=== PATIENT | female | born 1975 | race Caucasian/White ===

== ENCOUNTER 2018-05-27 16:15 | Emergency (ER) | payer BC ==
[~2018-05-27] VITALS: Ht 170.2 cm; Wt 64.1 kg
[2018-05-27 16:21] VITALS: Ht 170.2 cm; Wt 64.1 kg
[2018-05-27] MEDS ORDERED: BACTRIM DS TABL1 TAB PO (16:25)
[2018-05-27] MEDS ORDERED: CLONAZEPAM1 MG/TAB PO (16:26)
[2018-05-27] MEDS ORDERED: MUSCLE RELAXANT (16:26)
[2018-05-27 16:52] LABS: BASOPHILS 0.4 % (0-2); EOSINOPHILS 1.3 % (0-7); HEMATOCRIT 36.7 % (36.0-48.0); HEMOGLOBIN 12.2 g/dL (12-16); IMMATURE GRANULOCYTES 0.1 % (0-5); LYMPHOCYTES 17.8 % (15-50); MCH 30.8 pg (26.0-34.0); MCHC 33.2 g/dL (31.0-37.0); MCV 92.7 fL (80.0-100.0); MEAN PLATELET VOLUME 9.2 fL (7.4-10.4); MONOCYTES 7.5 % (2-11); NEUTROPHILS 72.9 % (40-80); PLATELET COUNT 165 10x3/uL (130-400); RBC 3.96 10x6/uL (4.00-5.40); RDW 13.3 % (11.5-14.5); WBC 7.1 10x3/uL (4.8-10.8)
[2018-05-27 17:03] LABS: INR 0.99 (0.85-1.17); PROTIME 12.7 SECONDS (11.6-15.0)
[2018-05-27 17:07] LABS: ALBUMIN 4.1 g/dL (3.4-5.0); ANION GAP 12.2 mmol/L (8-16); BILIRUBIN - TOTAL 0.37 mg/dL (0.2-1.3); CALCIUM 9.1 mg/dL (8.5-10.1); CARBON DIOXIDE 24.4 mmol/L (21.0-32.0); POTASSIUM - SERUM 3.6 mmol/L (3.5-5.1); PROTEIN - SERUM 7.6 g/dL (6.4-8.2)
[2018-05-27] MEDS ORDERED: CLEOCIN HCL300 MG PO (17:21)
[2018-05-27 18:20] VITALS: BP 132/84
== END 2018-05-27 18:18 | disposition home or self-care (01) ==
LOC: D.ER 16:15
PROVIDERS: Family Medicine
DX: S62.637B Displaced fracture of distal phalanx of left little finger, initial encounter for open fracture (principal); W23.0XXA Caught, crushed, jammed, or pinched between moving objects, initial encounter; Y93.89 Activity, other specified; Y92.89 Other specified places as the place of occurrence of the external cause; F17.200 Nicotine dependence, unspecified, uncomplicated